=== PATIENT | male | born 1995 | race African-American/Black ===

== ENCOUNTER 2017-03-16 14:11 | Emergency (ER) | payer BC ==
[~2017-03-16] VITALS: Ht 175.3 cm; Wt 111.1 kg
--- NOTE | 2017-03-16 16:29 | Diagnostic Imaging Report ---
EXAMINATION: Chest, CHEST 2 VIEWS INDICATION: Chest pain COMPARISON: None FINDINGS: LINES: None. Heart: Normal cardiac silhouette. Vascular: The pulmonary vasculature is within normal limits. Mediastinum: No mediastinal, hilar, or axillary mass or lymphadenopathy. Lungs: No parenchymal mass. No focal consolidation. Pleura: No pleural effusion. No pneumothorax. Bones: No acute osseous abnormality. Soft tissues: Normal. Impression: No acute radiographic abnormality. Signed by: Dr. Gamal Dick M.D. on 03/16/2017 4:25 PM
--- NOTE | 2017-03-16 16:42 | Diagnostic Imaging Report ---
Right tibia and fibula - 2 views HISTORY: Pain. COMPARISON: None available. FINDINGS: Bones: No acute displaced fracture. No expansile lytic or sclerotic lesion. Joints: The joint spaces are well-maintained. No dislocation. Soft tissues: The soft tissues appear unremarkable. IMPRESSION: No acute radiographic abnormality. Signed by: Dr. Gamal Dick M.D. on 03/16/2017 4:39 PM
== END 2017-03-16 18:14 | disposition home or self-care (01) ==
LOC: ER 14:11
DX: S00.531A Contusion of lip, initial encounter (principal); S20.219A Contusion of unspecified front wall of thorax, initial encounter; S80.11XA Contusion of right lower leg, initial encounter; Y92.480 Sidewalk as the place of occurrence of the external cause; V47.0XXA Car driver injured in collision with fixed or stationary object in nontraffic accident, initial encounter
CPT/HCPCS: 71020; 99282